=== PATIENT | female | born 2000 | race Caucasian/White ===

== ENCOUNTER 2018-07-25 18:28 | Emergency (ER) | payer MEDICAID ==
[2018-07-25 18:43] VITALS: BMI 21.4
[2018-07-25 18:49] VITALS: TEMP 98.3
[2018-07-25] MEDS ORDERED: Tetracaine 0.5% Ophth 2 ML BOTTLE OD STA (19:06)
--- NOTE | 2018-07-25 19:53 | ED PDOC ---
Arrival/HPI - General Chief Complaint: Eye Problem Time Seen by Provider: 07/25/18 18:29 Historian: Patient - History of Present Illness Narrative History of Present Illness (Text): 07/25/18 20:08 18 y/o female with no PMH presents to the ED c/o pimple to her right upper eyelid x 1 day. Pt has not taken any medication for her symptoms. She has never experienced this before. Wears glasses for nearsightedness. Denies fever, chi lls, vision changes, dizziness, headache, eye pain, periorbital swelling/erythema, or any other associated symptoms. Past Medical History - Provider Review Nursing Documentation Reviewed: Yes - Psychiatric Hx Substance Use: No Family/Social History - Physician Review Nursing Documentation Reviewed: Yes Family/Social History: No Known Family HX Smoking Status: Never Smoked Hx Alcohol Use: No Hx Substance Use: No Allergies/Home Meds Allergies/Adverse Reactions: Allergies No Known Allergies Allergy (Verified 07/25/18 18:43) Review of Systems - Review of Systems Constitutional: Normal. absent: Fevers Eyes: Normal. absent: Vision Changes ENT: Other (eye pimple). absent: Sore Throat, Sinus Congestion Respiratory: Normal. absent: SOB, Cough Cardiovascular: Normal. absent: Chest Pain, Palpitations Gastrointestinal: Normal. absent: Abdominal Pain, Nausea, Vomiting Musculoskeletal: Normal. absent: Back Pain, Neck Pain Skin: Normal. absent: Rash Neurological: Normal. absent: Headache, Dizziness Hemo/Lymphatic: Normal. absent: Adenopathy Physical Exam Vital Signs Reviewed: Yes Vital Signs Temp Pulse Resp BP Pulse Ox 07/25/18 18:44 98.3 F 83 18 132/86 100 07/25/18 18:28 77 18 121/83 99 Temperature: Afebrile Blood Pressure: Normal Pulse: Regular Respiratory Rate: Normal Appearance: Positive for: Well-Appearing, Non-Toxic, Comfortable Pain Distress: None Mental Status: Positive for: Alert and Oriented X 3 - Systems Exam Head: Present: Atraumatic, Normocephalic Pupils: Present: PERRL Extroacular Muscles: Present: EOMI Conjunctiva: Present: Normal, Other (hordeolum visualized to right eye, nasal aspect of upper lid; no periorbital edema or erythema; no proptosis). No: Injected Mouth: Present: Moist Mucous Membranes Neck: Present: Normal Range of Motion Respiratory/Chest: Present: Clear to Auscultation, Good Air Exchange. No: Respiratory Distress, Accessory Muscle Use Cardiovascular: Present: Regular Rate and Rhythm, Normal S1, S2, Peripheal Pulses Present Upper Extremity: Present: Normal Inspection, Normal ROM, NORMAL PULSES, Neurovascularly Intact, Capillary Refill < 2s. No: Cyanosis, Edema, Temperature Abnormalties Lower Extremity: Present: Normal ROM Neurological: Present: GCS=15, CN II-XII Intact, Speech Normal, Motor Func Grossly Intact, Normal Sensory Function, Gait Normal Skin: Present: Warm, Dry, Normal Color. No: Rashes Lymphatic: No: Cervical Adenopathy Psychiatric: Present: Alert, Oriented x 3, Normal Insight, Normal Concentration, Normal Affect, Normal Mood Medical Decision Making ED Course and Treatment: 07/25/18 19:46 Initial Plan: * Fluoroscein Stain Fluoroscein stain reveals no discrete areas of uptake. No FB visualized on eyelid eversion. Advised eye and PMD followup. Given prescription for erythromycin and educated on supportive care. Diagnostic testing results and plan of care discussed with patient. Strict instructions given regarding prescription use, importance of followup, and signs/symptoms to return to ER including vision changes, fever, eye pain, or any other new/worsening symptoms. Pt verbalized understanding of discussion. Patient is A&Ox3, ambulating with steady gait, with vital signs stable for discharge. - Medication Orders Current Medication Orders: Discontinued Medications Tetracaine HCl (Tetracaine 0.5% Ophth Soln) 1 drop OD STAT STA Stop: 07/25/18 19:07 Disposition/Present on Arrival - Present on Arrival Any Indicators Present on Arrival: No History of DVT/PE: No History of Uncontrolled Diabetes: No Urinary Catheter: No History of Decub. Ulcer: No History Surgical Site Infection Following: None - Disposition Have Diagnosis and Disposition been Completed?: Yes Diagnosis: Hordeolum Disposition: HOME/ ROUTINE Disposition Time: 19:25 Patient Plan: Discharge Condition: STABLE Discharge Instructions (ExitCare): [place] (Hordeolum) Additional Instructions: apply 1/2" ribbon of ointment to upper lid every 6 hours for 1 week warm compresses three times daily Followup with eye doctor within 2 days Return to ER with any new/worsening symptoms Prescriptions: Erythromycin 0.5% [Erythromycin] 1 applic OD Q6H #1 tube Referrals: Clement Riggins MD [Staff Provider] - Follow up with primary Vaishali Tyler MD [Medical Doctor] - Follow up with primary [facility] [place] [Outside] - Follow up with primary Forms: [employer] (Hungarian), WORK NOTE
[2018-07-25 20:09] VITALS: BP 110/74; PULSE 77; RESP 16; O2SAT 99
== END 2018-07-25 20:08 | disposition home or self-care (01) ==
LOC: ED 18:28
DX: H00.011 Hordeolum externum right upper eyelid (principal)